=== PATIENT | male | born 1950 ===

== ENCOUNTER 2024-05-27 12:00 | Inpatient (IN) | payer OTHER ==
[~2024-05-27] VITALS: Ht 190.5 cm; Wt 93.0 kg
[2024-05-27] MEDS ORDERED: PANTOPRAZOLE SO40 MG PO (12:24)
[2024-05-27] MEDS ORDERED: FINASTERIDE5 MG PO (12:24)
[2024-05-27] MEDS ORDERED: CHILDREN'S ASPI81 MG PO (12:24)
[2024-05-27] MEDS ORDERED: LOSARTAN POTASS50 MG PO (12:24)
[2024-05-27] MEDS ORDERED: LEVO-T50 MCG PO (12:24)
[2024-05-27] MEDS ORDERED: FAMOTIDINE40 MG PO (12:25)
[2024-05-27] MEDS ORDERED: LIPITOR20 MG PO (12:25)
[2024-05-27] MEDS ORDERED: TOPROL XL100 M1 PO (12:25)
[2024-06-13] MEDS ORDERED: GABAPENTIN300 M2 (07:47)
[2024-06-13] MEDS ORDERED: DEXAMETHASONE SODIUM PHOSP/PF 10 MG/ML VIAL IV ONE (08:30)
[2024-06-13] MEDS ORDERED: ENALAPRILAT DIHYDRATE 1.25 MG/ML VIAL IV PRN (09:45)
[2024-06-13] MEDS ORDERED: ONDANSETRON HCL 2 MG/ML VIAL IV PRN (09:45)
[2024-06-13] MEDS ORDERED: TRAMADOL HCL 50 MG TABLET PO SCH (12:00)
[2024-06-13] MEDS ORDERED: ACETAMINOPHEN 500 MG GEL..CAP PO SCH (17:00)
[2024-06-13] MEDS ORDERED: CYCLOBENZAPRINE HCL 5 MG TABLET PO SCH (17:00)
[2024-06-13] MEDS ORDERED: PANTOPRAZOLE SODIUM 40 MG/VIAL VIAL IV PUSH SCH (21:00)
[2024-06-14] MEDS ORDERED: LEVOTHYROXINE SODIUM 50 MCG TABLET PO SCH (06:00)
[2024-06-14] MEDS ORDERED: METOPROLOL SUCCINATE 100 MG TAB.SR.24H PO SCH (09:00)
[2024-06-14] MEDS ORDERED: FAMOtidine 40 MG TABLET PO SCH (09:00)
[2024-06-14] MEDS ORDERED: ATORVASTATIN CALCIUM 20 MG TABLET PO SCH (09:00)
[2024-06-14] MEDS ORDERED: FINASTERIDE 5 MG TABLET PO SCH (09:00)
[2024-06-14] MEDS ORDERED: LOSARTAN POTASSIUM 50 MG TABLET PO SCH (09:00)
== END 2024-06-14 12:47 | disposition home or self-care (01) | DRG 627 ==
LOC: O/R 06-13 05:10 → SURH 06-13 07:00
PROVIDERS: ADMIT Otolaryngology; ATTEND Otolaryngology
PROC: 0GBL0ZZ Excision of Right Superior Parathyroid Gland, Open Approach (ICD-10-PCS; principal; 2024-06-13 07:00)
DX: D35.1 Benign neoplasm of parathyroid gland (principal); Z20.822 Contact with and (suspected) exposure to COVID-19